=== PATIENT | male | born 1945 | race Caucasian/White ===

== ENCOUNTER 2019-11-20 12:28 | Emergency (ER) | payer MEDICARE, MEDICAID ==
[~2019-11-20] VITALS: Ht 172.7 cm; Wt 103.9 kg
--- NOTE | 2019-11-20 12:45 | NUR ---
PT STATES HE WAS MOVING SEVERAL COUCHES ABOUT A WEEK AGO AND MIGHT'VE INJURED SOMETHING IN THE PROCESS. ABLE TO AMBULATE BUT PAIN INCREASES WITH MOVEMENT.
[2019-11-20] MEDS ORDERED: LISI5TAB7 PO (12:54)
[2019-11-20] MEDS ORDERED: TAMS-11 PO (12:54)
[2019-11-20] MEDS ORDERED: KETOROLAC 30 MG/1 ML IM ONE (13:30)
--- NOTE | 2019-11-20 13:30 | NUR ---
PT TO XR VIA OCTAVIA.
[2019-11-20] MEDS ORDERED: KETOROLAC 30 MG/1 ML ONE (14:01)
--- NOTE | 2019-11-20 14:10 | NUR ---
PT MEDICATED FOR PAIN PER ORDERS. AMBULATED TO BR WITHOUT DIFFICULTY.
[2019-11-20 14:39] VITALS: BP 167/70
--- NOTE | 2019-11-20 14:39 | NUR ---
PT VERBALIZES SOME RELIEF AFTER TORADOL. D/C INSTRUCTIONS, MEDS & F/U APPT RV'WD WITH PT, HE VERBALIZES UNDERSTANDING. RX GIVEN X2. PT AMBULATED OUT OF ED WITHOUT DIFFICULTY.
== END 2019-11-20 14:42 | disposition home or self-care (01) ==
LOC: ED 12:59
DX: M54.41 Lumbago with sciatica, right side (principal); G89.29 Other chronic pain; I10 Essential (primary) hypertension
CPT/HCPCS: 72110; 96372; 99283; J1885